=== PATIENT | male | born 1990 | race African-American/Black ===

== ENCOUNTER 2023-03-26 01:35 | Emergency (ER) | payer MEDICAID, OTHER ==
[~2023-03-26] VITALS: Ht 175.3 cm; Wt 85.3 kg
[2023-03-26 01:40] VITALS: BP 111/67; PULSE 90; RESP 16; TEMP 97.9; O2SAT 99
[2023-03-26] MEDS ORDERED: DEXAMETHASONE 10 MG/ML VIAL IVP ONE (02:10)
[2023-03-26] MEDS ORDERED: FAMOTIDINE 20 MG/2 ML VIAL IVP ONE (02:10)
[2023-03-26] MEDS ORDERED: KETOROLAC 30 MG/ML VIAL IVP ONE (02:10)
[2023-03-26] MEDS ORDERED: diphenhydrAMINE 50 MG/ML VIAL IVP ONE (02:10)
[2023-03-26 02:48] VITALS: O2SAT 98
[2023-03-26 03:07] LABS: FLU A ANTIGEN negative (NEGATIVE); FLU B ANTIGEN NEGATIVE (NEGATIVE)
[2023-03-26] MEDS ORDERED: EPIN1KIT32 IM (03:28)
[2023-03-26] MEDS ORDERED: FAMO-90 PO (03:28)
[2023-03-26] MEDS ORDERED: DIPH25SG5 PO (03:28)
[2023-03-26 04:30] VITALS: BP 105/60; PULSE 93; RESP 29; O2SAT 97
== END 2023-03-26 04:30 | disposition home or self-care (01) ==
LOC: MED 01:35
DX: R51.9 Headache, unspecified (principal); Z20.822 Contact with and (suspected) exposure to COVID-19; T78.3XXA Angioneurotic edema, initial encounter; Z88.0 Allergy status to penicillin; Z79.899 Other long term (current) drug therapy
CPT/HCPCS: 87426; 87804; 96374; 96375; 99284; J1100; J1200; J1885; J3490

== ENCOUNTER 2023-06-05 22:16 | Emergency (ER) | payer OTHER ==
[~2023-06-05] VITALS: Ht 175.3 cm; Wt 88.5 kg
[~2023-06-05 22:16] MED LIST: DIPH25SG5 PO; EPIN1KIT32 IM; FAMO-90 PO
[2023-06-05 22:20] VITALS: BP 119/68; PULSE 83; RESP 18; TEMP 98.6; O2SAT 98
[2023-06-05 23:40] VITALS: O2SAT 99
[2023-06-05] MEDS ORDERED: ACETAMINOPHEN EXTRA STRENGTH 500 MG TAB PO ONE (23:40)
[2023-06-06 00:01] LABS: BASOPHILS % (AUTO) 1.1 % (0.0-2.0); EOSINOPHILS # (AUTO) 0.2 K/uL (0-0.4); EOSINOPHILS % (AUTO) 7.3 % (0.0-4.0); HEMATOCRIT 37.5 % (36-52); HEMOGLOBIN 12.4 g/dL (12.0-18.0); LYMPHOCYTES # (AUTO) 1.4 K/uL (2.0-11.5); MEAN CORPUSCULAR HEMOGLOBIN 27 pg (27-31); MEAN CORPUSCULAR HGB CONC 33 g/dL (33-37); MONOCYTES # (AUTO) 0.2 K/uL (0.8-1.0); MONOCYTES % (AUTO) 6.2 % (1.7-9.3); NEUTROPHILS # (AUTO) 1.3 K/uL (1.8-7.7); NEUTROPHILS % (AUTO) 40.4 % (42.2-75.2); PLATELET COUNT (AUTO) 230 K/uL (140-450); RED BLOOD CELL COUNT(AUTO) 4.63 MIL/uL (4.20-6.10); RED CELL DISTRIBUTION WIDTH 13.9 % (11.6-13.7); WHITE BLOOD COUNT (AUTO) 3.1 K/uL (4.8-10.8)
[2023-06-06 00:12] LABS: ANION GAP 13.4 (8-16); CALCIUM 8.9 mg/dL (8.5-10.1); CARBON DIOXIDE 28.3 mmol/L (21-32); POTASSIUM 3.7 mmol/L (3.5-5.1)
[2023-06-06 00:15] LABS: APPEARANCE,URINE CLEAR (CLEAR); BILIRUBIN,URINE NEGATIVE (NEGATIVE); BLOOD, URINE NEGATIVE (NEGATIVE); COLOR,URINE YELLOW (YELLOW); LEUKOCYTE ESTERASE ,URINE NEGATIVE (NEGATIVE); NITRITE, URINE NEGATIVE (NEGATIVE); PH,URINE 6.5 (5.0-9.0); PROTEIN,URINE NEGATIVE (NEGATIVE); UGLUCOSE NEGATIVE (NEGATIVE); UROBILINOGEN,URINE 0.2 EU/dL (0.2 - 1)
[2023-06-06 00:23] LABS: ALBUMIN 3.2 g/dL (3.4-5.0); BILIRUBIN,DIRECT 0.1 mg/dL (0.0-0.3); TOTAL BILIRUBIN 0.2 mg/dL (0.0-1.0); TOTAL PROTEIN, SERUM 7.8 g/dL (6.4-8.2)
[2023-06-06 01:39] VITALS: O2SAT 98
[2023-06-06 04:17] VITALS: BP 116/64; PULSE 70; RESP 17; TEMP 98.1; O2SAT 98
== END 2023-06-06 04:17 | disposition home or self-care (01) ==
LOC: MED 22:16
DX: R10.31 Right lower quadrant pain (principal); Z79.899 Other long term (current) drug therapy; Z88.0 Allergy status to penicillin
CPT/HCPCS: 36415; 74177; 80048; 80076; 81003; 83690; 85025; 87491; 99285; Q9967

== ENCOUNTER 2023-11-18 15:38 | Emergency (ER) | payer OTHER ==
[~2023-11-18] VITALS: Ht 175.3 cm; Wt 83.0 kg
[2023-11-18 15:46] VITALS: BP 135/60; PULSE 89; RESP 19; TEMP 98.1; O2SAT 99
[2023-11-18 16:39] LABS: BASOPHILS # (AUTO) 0.1 K/uL (0.00-0.22); BASOPHILS % (AUTO) 0.8 % (0.0-2.0); EOSINOPHILS # (AUTO) 0.1 K/uL (0-0.4); EOSINOPHILS % (AUTO) 1.9 % (0.0-4.0); HEMOGLOBIN 10.3 g/dL (12.0-18.0); LYMPHOCYTES # (AUTO) 1.3 K/uL (2.0-11.5); LYMPHOCYTES % (AUTO) 21.4 % (20.5-51.1); MEAN CORPUSCULAR HEMOGLOBIN 26 pg (27-31); MEAN CORPUSCULAR HGB CONC 32 g/dL (33-37); MEAN CORPUSCULAR VOLUME 81.8 fL (80-94); MONOCYTES # (AUTO) 0.4 K/uL (0.8-1.0); MONOCYTES % (AUTO) 6.9 % (1.7-9.3); NEUTROPHILS # (AUTO) 4.2 K/uL (1.8-7.7); PLATELET COUNT (AUTO) 365 K/uL (140-450); RED BLOOD CELL COUNT(AUTO) 3.92 MIL/uL (4.20-6.10); RED CELL DISTRIBUTION WIDTH 15.4 % (11.6-13.7); WHITE BLOOD COUNT (AUTO) 6.2 K/uL (4.8-10.8)
[2023-11-18] MEDS: ONDANSETRON 4 MG/2 ML VIAL IVP ONE (16:39)
[2023-11-18] MEDS: DEXAMETHASONE 10 MG/ML VIAL IVP ONE (16:39)
[2023-11-18] MEDS: KETOROLAC 30 MG/ML VIAL IVP ONE (16:39)
[2023-11-18 16:46] LABS: ANION GAP 11.2 (8-16); CALCIUM 8.8 mg/dL (8.5-10.1); CARBON DIOXIDE 30.4 mmol/L (21-32); CREATININE 1.2 mg/dL (0.6-1.3); POTASSIUM 3.6 mmol/L (3.5-5.1)
[2023-11-18 16:54] LABS: ALBUMIN 3.4 g/dL (3.4-5.0); BILIRUBIN,DIRECT 0.1 mg/dL (0.0-0.3); TOTAL BILIRUBIN 0.2 mg/dL (0.0-1.0); TOTAL PROTEIN, SERUM 7.8 g/dL (6.4-8.2)
[2023-11-18 17:07] LABS: APPEARANCE,URINE CLEAR (CLEAR); BILIRUBIN,URINE 1+ (NEGATIVE); BLOOD, URINE TRACE-I (NEGATIVE); LEUKOCYTE ESTERASE ,URINE NEGATIVE (NEGATIVE); NITRITE, URINE NEGATIVE (NEGATIVE); PROTEIN,URINE 1+ (NEGATIVE); UGLUCOSE NEGATIVE (NEGATIVE); UROBILINOGEN,URINE 0.2 EU/dL (0.2 - 1)
[2023-11-18 17:09] LABS: COLOR,URINE AMBER (YELLOW)
[2023-11-18 17:11] VITALS: BP 129/61; PULSE 81; RESP 19; TEMP 98.1; O2SAT 99
[2023-11-18 17:27] LABS: BACTERIA,URINE FEW /HPF (None Seen); ICTOTEST NEGATIVE (NEGATIVE); SQUAMOUS EPITHELIAL CELL,UR None Seen /LPF (0-3 (FEW)); WBC,URINE NONE SEEN /HPF (0-5)
[2023-11-18] MEDS: NACL 0.9% 1,000 ML IV ONE (17:38)
[2023-11-18] MEDS ORDERED: METH4TAB1 PO (19:21)
[2023-11-18] MEDS ORDERED: MELO-176 PO (19:21)
== END 2023-11-18 19:38 | disposition home or self-care (01) ==
LOC: MED 15:38
DX: M32.9 Systemic lupus erythematosus, unspecified (principal); R10.30 Lower abdominal pain, unspecified; Z79.899 Other long term (current) drug therapy
CPT/HCPCS: 36415; 74176; 80048; 80076; 81001; 83690; 85025; 96374; 96375; 99285; J1100; J1885; J2405; J7030

== ENCOUNTER 2024-02-19 20:17 | Emergency (ER) | payer OTHER ==
[~2024-02-19] VITALS: Ht 175.3 cm; Wt 77.1 kg
[~2024-02-19 20:17] MED LIST changes: +MELO-176 PO; +METH4TAB1 PO
[2024-02-19 20:24] VITALS: BP 117/80; PULSE 87; RESP 18; TEMP 98.4; O2SAT 99
[2024-02-19 21:07] LABS: APPEARANCE,URINE CLEAR (CLEAR); BILIRUBIN,URINE NEGATIVE (NEGATIVE); BLOOD, URINE NEGATIVE (NEGATIVE); COLOR,URINE YELLOW (YELLOW); LEUKOCYTE ESTERASE ,URINE NEGATIVE (NEGATIVE); NITRITE, URINE NEGATIVE (NEGATIVE); PROTEIN,URINE NEGATIVE (NEGATIVE); UGLUCOSE NEGATIVE (NEGATIVE); UROBILINOGEN,URINE 0.2 EU/dL (0.2 - 1)
[2024-02-19 21:50] VITALS: BP 121/80; PULSE 80; RESP 18; TEMP 98.3; O2SAT 99
== END 2024-02-19 21:50 | disposition home or self-care (01) ==
LOC: MED 20:17
DX: N50.812 Left testicular pain (principal); N50.811 Right testicular pain; Z20.2 Contact with and (suspected) exposure to infections with a predominantly sexual mode of transmission; Z79.899 Other long term (current) drug therapy
CPT/HCPCS: 76870; 81003; 87491; 99284; Q0092